=== PATIENT | female | born 1960 | race Two or more races ===

== ENCOUNTER 2021-05-16 13:20 | Emergency (ER) | payer OTHER ==
[~2021-05-16] VITALS: Ht 157.5 cm; Wt 88.2 kg
[2021-05-16 14:16] VITALS: BP 176/101
[2021-05-16] MEDS ORDERED: LIDOcaine 1% 30ml preserv. free vial IJ ONE (14:25)
[2021-05-16] MEDS ORDERED: ibuprofen tablet 400 MG TABLET PO ONE (14:50)
[2021-05-16] MEDS ORDERED: TETanus/Pertussis (Acell)/Diphther VAC/PF (Tdap-Adult) 0.5ml syringe IMVAC ONE (14:50)
[2021-05-16] MEDS ORDERED: cephalexin 250mg capsule PO ONE (14:50)
[2021-05-16] MEDS ORDERED: CEPH-585 PO (15:06)
== END 2021-05-16 15:48 | disposition home or self-care (01) ==
LOC: ER 13:21
DX: S90.455A Superficial foreign body, left lesser toe(s), initial encounter (principal); M79.675 Pain in left toe(s); E11.9 Type 2 diabetes mellitus without complications; Z88.0 Allergy status to penicillin; Z88.2 Allergy status to sulfonamides; Z88.8 Allergy status to other drugs, medicaments and biological substances; Z79.2 Long term (current) use of antibiotics; X58.XXXA Exposure to other specified factors, initial encounter; Y93.89 Activity, other specified; Y92.89 Other specified places as the place of occurrence of the external cause; Y99.8 Other external cause status
CPT/HCPCS: 64450; 90715; 99284